=== PATIENT | female | born 1960 | race Caucasian/White ===

== ENCOUNTER 2016-12-01 13:51 | Emergency (ER) | payer OTHER ==
--- NOTE | 2016-12-01 16:55 | XRAY Preliminary Report ---
Exam: XR Abdomen 1 View IMPRESSION: Normal 1-view abdomen x-ray. [facility] SITE ID: [id number]
--- NOTE | 2016-12-01 16:58 | XRAY Preliminary Report ---
Exam: XR Neck Soft Tissue IMPRESSION: Normal soft tissue neck radiography. [facility] SITE ID: [id number]
--- NOTE | 2016-12-01 17:01 | XRAY Report ---
EXAM: ABDOMEN RADIOGRAPHY EXAM DATE: 12/01/2016 04:36 PM. CLINICAL HISTORY: Constipation with intermittent diarrhea. COMPARISON: None. TECHNIQUE: 1 view. FINDINGS: Bowel Gas Pattern: Within normal limits. No dilated loops. Minimal amount of stool ascending colon. Other: None. IMPRESSION: Normal 1-view abdomen x-ray. [facility] Referring Provider Line: [phone] SITE ID: [id number]
--- NOTE | 2016-12-01 17:01 | ED Physician Documentation ---
History of Present Illness - Stated complaint Stated Complaint: FORIEGN OBJ IN THROAT - Chief complaint Chief Complaint: Abd Pain - History obtained from History obtained from: Patient - Additonal information Additional information: The patient is a 56-year-old female who complains of discomfort in her throat for the past 2 days, stating that it feels like something is stuck in it. She has been "belching," and reports an acid/bitter taste in her mouth. 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 She reports having a cough last week, but that has resolved. She has felt nauseated for the past 2 days. She denies vomiting or abdominal pain. She reports a history of chronic constipation, and has noticed decreased size of her stool progressively over the past several weeks. Out of concern for constipation she began taking MiraLAX and senna the past 2 days. Today she has had diarrhea. She denies fever or dysuria. She has had no abdominal surgery, but reports a history of hiatal hernia. She is scheduled to take a plane flight tomorrow and is concerned about the sensation in her throat, or the possibility of bowel obstruction. Review of Systems Constitutional: denies: Fever Eyes: denies: Discharge Ears: denies: Ear pain Nose: denies: Congestion Throat: reports: Sore throat Cardiac: denies: Chest pain / pressure Respiratory: denies: Dyspnea, Cough GI: reports: Nausea (2 days ago, but not currently.), Diarrhea (Diarrhea today after taking MiraLAX and senna for the past 2 days.). denies: Abdominal Pain, Vomiting : denies: Dysuria Skin: denies: Rash Musculoskeletal: denies: Back pain Neurologic: denies: Focal weakness, Numbness, Headache PD PAST MEDICAL HISTORY - Past Medical History Cardiovascular: None Respiratory: None Neuro: None Endocrine/Autoimmune: None GI: Hiatal hernia - Present Medications Home Medications: Ambulatory Orders Medication Instructions Recorded Confirmed Omeprazole 20 mg PO DAILY #30 tablet. 12/01/16 - Social History Does the pt smoke?: No Does the pt drink ETOH?: Yes ETOH Use: Wine Does the pt have substance abuse?: No PD ED PE NORMAL - Vitals Vital signs reviewed: Yes (Initially hypertensive.) - General General: Alert and oriented X 3, Well developed/nourished - HEENT HEENT: Atraumatic, Pharynx benign - Neck Neck: Supple, no meningeal sign, No adenopathy, No JVD - Cardiac Cardiac: RRR, No murmur - Respiratory Respiratory: No respiratory distress, Clear bilaterally - Abdomen Abdomen: Soft, Non tender, No organomegaly - Back Back: No CVA TTP - Derm Derm: No rash - Extremities Extremities: No edema, No calf tenderness / cord - Neuro Neuro: Alert and oriented X 3, No motor deficit, No sensory deficit, Normal speech Results - Vitals Vitals: Oxygen O2 Source Room air - Rads (name of study) Soft tissue neck Radiology: Prelim report reviewed, EMP read contemporaneously, See rad report ( Normal soft tissue neck radiography.) 1-view abdomen Radiology: Prelim report reviewed, EMP read contemporaneously, See rad report ( Normal one view abdomen x-ray.) PD MEDICAL DECISION MAKING - ED course Complexity details: reviewed results, re-evaluated patient, considered differential, d/w patient ED course: The patient's presentation is most consistent with gastroesophageal reflux, with irritation of her esophagus. There is no evidence of esophageal foreign body or acute pharyngitis. Soft tissue x-ray of the neck reveals no soft tissue abnormality. Abdominal x-ray reveals no evidence of obstruction or significant stool collection. Treatment in the emergency department included administration of GI cocktail, which did improve the discomfort in the patient' s throat. I discussed with her the likely etiology of her symptoms, potentially contributing dietary factors, symptomatic treatment and outpatient follow-up, as well as potentially worrisome signs or symptoms that should prompt reevaluation in the emergency department. She is being discharged with prescription for omeprazole. Departure - Departure Disposition: 01 Home, Self Care Clinical Impression: Gastroesophageal reflux disease Qualifiers: Esophagitis presence: esophagitis presence not specified Qualified Code(s): K21.9 - Gastro-esophageal reflux disease without esophagitis Condition: Stable Instructions: ED GERD Follow-Up: Jigna Beach PA-C [Primary Care Provider] - Prescriptions: Omeprazole 20 mg PO DAILY #30 tablet. Comments: Minimize coffee, declan, alcohol, and chocolate, as well as spicy foods. Take omeprazole daily as prescribed. You can use liquid antiacids, such as Maalox or Mylanta, if you develop recurrent symptoms. Follow up with your primary physician within one to 2 weeks. Call to schedule an appointment. Return to the emergency department if you develop increasing pain, difficulty swallowing, or otherwise worsening symptoms. Discharge Date/Time: 12/01/16 18:07
--- NOTE | 2016-12-01 17:09 | XRAY Report ---
EXAM: SOFT TISSUE NECK RADIOGRAPHY EXAM DATE: 12/01/2016 04:36 PM. CLINICAL HISTORY: Foreign body sensation in throat. COMPARISONS: None. TECHNIQUE: 2 views. FINDINGS: Soft Tissues: No prevertebral soft tissue swelling. The epiglottis and aryepiglottic folds are unrema rkable. No tonsillar or adenoidal enlargement. No radiopaque foreign body. Regional Skeleton: Moderate to marked degenerative disease C4-C5, C5-C6, and C6-C7. Small anterior os teophytes at this level. No mechanical compromise of the cervical esophagus. 6 mm uniform area of sclerosis C3 spinous process consistent with a bone island, atypical for metasta tic disease . Other: The visualized lung apices are clear. IMPRESSION: Normal soft tissue neck radiography. [facility] Referring Provider Line: [phone] SITE ID: [id number]
[2016-12-01] MEDS ORDERED: LIDOCAINE VISCOUS 2% 15 ML UDC MM STA (17:30)
[2016-12-01] MEDS ORDERED: MAG HYDROX/AL HYDROX/SIMETH 30 ML UDC PO STA (17:30)
[2016-12-01] MEDS ORDERED: LIDOCAINE VISCOUS 2% 15 ML UDC MM ONE (17:42)
[2016-12-01] MEDS ORDERED: MAG HYDROX/AL HYDROX/SIMETH 30 ML UDC ONE (17:42)
[2016-12-01 18:02] VITALS: BP 137/84
== END 2016-12-01 18:07 | disposition home or self-care (01) ==
LOC: ED 13:51
DX: K21.9 Gastro-esophageal reflux disease without esophagitis (principal)
CPT/HCPCS: 70360; 74000; 99283; 99284; A9270

== ENCOUNTER 2017-07-31 08:00 | Outpatient (CLI) | payer OTHER | END 2017-07-31 23:59 | disposition home or self-care (01) | LOC: LAB.R 08:00 | PROVIDERS: ATTEND Internal Medicine Hematology & Oncology | DX: D3A.8 Other benign neuroendocrine tumors (principal) | CPT/HCPCS: 82570; 83497 ==

== ENCOUNTER 2020-03-31 15:34 | Outpatient (CLI) | payer BC ==
[2020-03-31 20:08] LABS: ALBUMIN 4.2 g/dL (3.2-5.5); ALBUMIN/GLOBULIN RATIO 1.5 (1.0-2.2); BILIRUBIN,TOTAL 0.5 mg/dL (0.2-1.0); CALCIUM 9.2 mg/dL (8.5-10.3); CREATININE 0.7 mg/dL (0.4-1.0)
[2020-03-31 20:27] LABS: THYROID STIMULATING HORMONE 0.51 uIU/mL (0.34-5.60)
[2020-03-31 20:28] LABS: FREE T3 3.1 pg/mL (2.5-3.9)
[2020-03-31 20:29] LABS: FREE T4 (FREE THYROXINE) 0.85 ng/dL (0.58-1.64)
== END 2020-03-31 15:35 | disposition home or self-care (01) ==
LOC: LAB.S 15:34
PROVIDERS: ATTEND Internal Medicine Endocrinology, Diabetes & Metabolism
DX: E05.90 Thyrotoxicosis, unspecified without thyrotoxic crisis or storm (principal)
CPT/HCPCS: 36415; 80053; 84439; 84443; 84481

== ENCOUNTER 2023-02-12 12:56 | Outpatient (CLI) | payer MEDICAID ==
--- NOTE | 2023-02-13 10:19 | Mammography Report ---
BILATERAL DIGITAL SCREENING MAMMOGRAM 3D/2D: 02/12/2023 CLINICAL: Routine screening. Family history of breast cancer. Comparison is made to exams dated: 08/29/2016 mammogram, 05/18/2014 mammogram, and 07/14/2011 mammogram - [facility]. There are scattered areas of fibroglandular density in both breasts (category b / 25%-50% glandular t issue). No significant masses, calcifications, or other findings are seen in either breast. There has been no significant interval change. IMPRESSION: NEGATIVE There is no mammographic evidence of malignancy. A 1 year screening mammogram is recommended. Based on the Tyrer Cuzick model (a risk assessment model) the patients lifetime risk is 5.1% and her 10 year risk is 2.2%. According to the ACR, ACS, and NCCN guidelines, an annual breast MRI exam eloy g with mammogram is recommended if the patients lifetime risk is 20% or greater. This exam was interpreted at Station ID: [id number]. NOTE: For mammograms, a report in lay terms will be sent to the patient. Approximately 15% of breast malignancies will not be visualized mammographically. In the management of a palpable breast mass, a negative mammogram must not discourage biopsy of a clinically suspicious lesion. Electronically Signed By: Chel valerio/bryant:02/12/2023 17:27:35 letter sent: No_Letter ACR BI-RADS Category 1: Negative 3341F PARENCHYMAL PATTERN: (A) - The breast(s) demonstrate(s) scattered fibroglandular densities. BI-RADS CATEGORY: (1) - 1 Mammogram [id number] 1 year screening LATERALITY: (B)
== END 2023-02-12 12:57 | disposition home or self-care (01) ==
LOC: DI.S 12:56
DX: Z12.31 Encounter for screening mammogram for malignant neoplasm of breast (principal); Z80.3 Family history of malignant neoplasm of breast

== ENCOUNTER 2023-12-11 08:00 | Outpatient (CLI) | payer MEDICAID ==
--- NOTE | 2023-12-11 14:32 | XRAY Report ---
PROCEDURE: Knee 3V RT INDICATIONS: CONTUSION OF RIGHT KNEE TECHNIQUE: 3 views of the knee(s) were acquired. COMPARISON: None. FINDINGS: Bones: No fractures or dislocations. No suspicious bony lesions. Moderate tricompartmental arthri tic change most severe medially. Particular osteophytes are present. Chondrocalcinosis is noted. Soft tissues: Mild knee joint effusion. No suspicious soft tissue calcifications or masses. IMPRESSION: Moderate tricompartmental arthritic changes as above. Reviewed by: Iliana Mon MD on 12/11/2023 2:31 PM PST Approved by: Iliana Mon MD on 12/11/2023 2:31 PM PST Station ID: [id number]
--- NOTE | 2023-12-11 14:32 | XRAY Report ---
PROCEDURE: Hip w/Pelvis 2-3V RT INDICATIONS: CONTUSION OF RIGHT HIP TECHNIQUE: 2 views of the hip were acquired. COMPARISON: None. FINDINGS: Bones: No fractures or dislocations. No suspicious bony lesions. Mild to moderate bilateral degen erative hip joint space narrowing. No erosions. Minimal degenerative changes are present in the lower lumbar spine. Soft tissues: No suspicious soft tissue calcifications or masses. IMPRESSION: No visualized acute fracture or dislocation. However, occult injury cannot be excluded. Recommend angelic rt interval imaging follow-up in 7-10 days as clinically indicated for additional evaluation. Reviewed by: Iliana Mon MD on 12/11/2023 2:30 PM PST Approved by: Iliana Mon MD on 12/11/2023 2:30 PM PST Station ID: [id number]
== END 2023-12-11 23:59 | disposition home or self-care (01) ==
LOC: DI.S 08:00
PROVIDERS: ATTEND Physician Assistant Medical
DX: S70.01XA Contusion of right hip, initial encounter (principal); S80.01XA Contusion of right knee, initial encounter; M17.11 Unilateral primary osteoarthritis, right knee

== ENCOUNTER 2023-12-18 08:00 | Outpatient (CLI) | payer MEDICAID ==
--- NOTE | 2023-12-18 14:08 | XRAY Report ---
PROCEDURE: Knee 4 View RT INDICATIONS: RIGHT KNEE PAIN TECHNIQUE: 4 views of the knee(s) were acquired. COMPARISON: None. FINDINGS: Bones: No acute fracture or subluxation seen. Calcifications of the right knee menisci represent clif drocalcinosis, calcium pyrophosphate deposition disease, hemachromatosis. Narrowing of the right knee joint space is seen especially in the medial compartment. Marginal osteophytes, subchondral sclerosi s also noted. 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 Reviewed by: Joel Spencer MD on 12/18/2023 2:07 PM PST Approved by: Joel Spencer MD on 12/18/2023 2:07 PM PST Station ID: [id number]
--- NOTE | 2023-12-18 14:53 | XRAY Report ---
PROCEDURE: Hip 2 View RT INDICATIONS: RIGHT HIP PAIN TECHNIQUE: 2 view(s) of the hip were acquired. COMPARISON: Pelvic and hip radiographs 12/11/2023, 12/01/2016. FINDINGS: Bones: No fractures or dislocations. No periosteal reaction. No suspicious bony lesions. The visua lized pelvic ring appears intact. Soft tissues: No suspicious soft tissue calcifications or masses. IMPRESSION: No fracture or dislocation. Reviewed by: Pietro Bacon MD on 12/18/2023 2:52 PM [facility] Approved by: Pietro Bacon MD on 12/18/2023 2:52 PM [facility] Station ID: [id number]
== END 2023-12-18 23:59 | disposition home or self-care (01) ==
LOC: DI.WOS 08:00
PROVIDERS: ATTEND Orthopaedic Surgery
DX: S70.01XA Contusion of right hip, initial encounter (principal); S80.01XA Contusion of right knee, initial encounter; M17.11 Unilateral primary osteoarthritis, right knee

== ENCOUNTER 2023-12-18 16:18 | Outpatient (CLI) | payer MEDICAID ==
--- NOTE | 2023-12-18 17:02 | CT Report ---
PROCEDURE: Lower Extremity RT WO INDICATIONS: CONTUSION TO R HIP TECHNIQUE: Noncontrast 3-mm axial sections acquired from the distal tibial shaft to the talar dome, with coronal and sagittal reformats. For radiation dose reduction, the following was used: automated exposure c ontrol, adjustment of mA and/or kV according to patient size. COMPARISON: Right hip radiograph on the same day. FINDINGS: Image quality: Excellent. Bones: Mild to moderate right hip joint osteoarthritic changes are seen with joint space narrowing, subchondral sclerosis and marginal osteophyte formation. No acute fracture or dislocation is seen in right hip for right hemipelvis. No suspicious bony lesions. No evidence of avascular necrosis of femo ral head. Degenerative disc disease in visualized lower lumbar spine is seen. Soft tissues: There is no pelvic free fluid of free air. No soft tissue mass or drainable fluid raul ection. No abnormal soft tissue calcifications or gross intramuscular hematoma. No pelvic lymphadenop athy. Impression: 1. No acute right hip fracture or dislocation. No evidence of avascular necrosis of femoral head. Mil d to moderate right hip joint osteoarthritis. 2. No large soft tissue hematoma or drainable fluid collection. No gross soft tissue mass. No abnorma l soft tissue calcifications Reviewed by: Andrew Devlin MD on 12/18/2023 5:00 PM PST Approved by: Andrew Devlin MD on 12/18/2023 5:00 PM PST Station ID: [id number]
== END 2023-12-18 16:19 | disposition home or self-care (01) ==
LOC: DI 16:18
PROVIDERS: ATTEND Orthopaedic Surgery
DX: M16.11 Unilateral primary osteoarthritis, right hip (principal)

== ENCOUNTER 2024-01-07 08:00 | Outpatient (CLI) | payer MEDICAID ==
--- NOTE | 2024-01-07 17:56 | XRAY Report ---
PROCEDURE: Hip 2 View RT INDICATIONS: RIGHT HIP PAIN TECHNIQUE: 2 view(s) of the hip were acquired. COMPARISON: None. FINDINGS: Bones: No fractures or dislocations. Moderate bilateral hip joint osteoarthritic changes are seen wo rse on the right side. No evidence of avascular necrosis of femoral head. No suspicious bony lesions. The visualized pelvic ring appears intact. Soft tissues: No suspicious soft tissue calcifications or masses. IMPRESSION: No acute bony abnormality. Moderate right worse than left bilateral hip joint osseous arthritis. No e vidence of avascular necrosis. Reviewed by: Andrew Devlin MD on 01/07/2024 5:55 PM PDT Approved by: Andrew Devlin MD on 01/07/2024 5:55 PM PDT Station ID: [id number]
--- NOTE | 2024-01-07 18:01 | XRAY Report ---
PROCEDURE: Knee 4 View RT INDICATIONS: RIGHT KNEE PAIN TECHNIQUE: 4 views of the knee(s) were acquired. COMPARISON: None. FINDINGS: Bones: No fractures or dislocations. Mild to moderate tricompartmental osteoarthritis is seen most notably in medial femoral tibial compartment. No suspicious bony lesions. Soft tissues: Small right suprapatellar knee joint effusion. No suspicious soft tissue calcification s or masses. IMPRESSION: No acute bony abnormality. Mild to moderate tricompartmental osteoarthritis and small right suprapatellar joint effusion. Reviewed by: Andrew Devlin MD on 01/07/2024 5:59 PM PDT Approved by: Andrew Devlin MD on 01/07/2024 5:59 PM PDT Station ID: [id number]
== END 2024-01-07 23:59 | disposition home or self-care (01) ==
LOC: DI.WOS 08:00
PROVIDERS: ATTEND Orthopaedic Surgery
DX: M17.11 Unilateral primary osteoarthritis, right knee (principal); M25.461 Effusion, right knee; M16.0 Bilateral primary osteoarthritis of hip